=== PATIENT | female | born 1965 | race African-American/Black ===

== ENCOUNTER → 2018-02-11 09:18 | Outpatient (CLI) | payer MEDICARE, MEDICAID, SELFPAY ==
--- NOTE | 2018-02-11 09:22 | RAD_ITS ---
CLINICAL HISTORY: Female, 52 years old. History of burning pain involving the upper quadrant. Acid reflux. Gastritis since 2015. Family history of Crohn's disease. PROCEDURE: Fluoroscopically guided, air-contrast upper GI with small bowel follow-through. FLUOROSCOPY TIME (if supplied): (2:17) minutes/seconds TECHNIQUE: The patient easily and readily swallowed effervescent crystals, 12 mm barium pill and various density barium contrast. Multiple digital spot images were obtained during the course of the real-time exam. FINDINGS: Esophageal motility appears normal. There is no esophageal stricture, web or diverticulum. There is no hiatal hernia. The esophageal mucosal pattern appears normal. No free reflux was observed during the course of the real-time exam. The 12 mm barium pill easily and readily transited through the esophagus into the stomach. The gastric morphology, position and rotation appear unremarkable. There is no intrinsic or extrinsic gastric mass or mass effect. The gastric mucosal pattern appears normal. Contrast readily exits the gastric outlet into unremarkable appearing duodenal bulb and proximal small bowel. Thereafter, contrast readily transmitted small bowel appeared within the cecum at approximately 20 minutes. The small bowel fold pattern and distribution appear normal. The terminal ileum is unremarkable. RAD/Upper GI/w Small Bowel IMPRESSION: Normal-appearing exam. Fluoroscopy time less than 1 minute. Electronically Signed: Derek Richardson MD at 12:21 EDT , Service support ,
== END ==
PROVIDERS: Family Provider Internal Medicine; PCP Internal Medicine; Visit Provider Internal Medicine
DX: K29.50 Unspecified chronic gastritis without bleeding (principal); R13.10 Dysphagia, unspecified; R10.12 Left upper quadrant pain; G89.29 Other chronic pain
CPT/HCPCS: 74249